=== PATIENT | female | born 1985 | race Caucasian/White ===

== ENCOUNTER 2018-10-03 10:45 | Emergency (ER) | payer BC ==
[2018-10-03] MEDS ORDERED: Sodium Chloride 0.9% 1,000 ML IV ONE (11:02)
[2018-10-03] MEDS ORDERED: Sodium Chloride 0.9% 10 ML Syringe FLUSH PRN (11:02)
[2018-10-03] MEDS ORDERED: methylPREDNISolone Sodium Succinate 125 MG/2 ML SDV IVPUSH ONE (11:03)
[2018-10-03] MEDS ORDERED: Famotidine 20 MG/2 ML SDV IVPUSH ONE (11:07)
--- NOTE | 2018-10-03 11:45 | EDM.PDOC ---
Scribed by Honey Torres 10/03/18 1143 for Ela Haywood NP ED HPI GENERAL MEDICAL PROBLEM - General Chief Complaint: Allergic Reaction Stated Complaint: ALLERGIC REACTION [id number] Time Seen by Provider: 10/03/18 11:00 Source of Information: Reports: Patient, RN, RN Notes Reviewed History Limitations: Reports: No Limitations - History of Present Illness INITIAL COMMENTS - FREE TEXT/NARRATIVE: Patient presents to ER with complaint of hives all over the body. Patient states she was in [place] this weekend when she broke out in hives. She states no new hygiene products. Possibly sheets at hotel. She was seen in ER in [place]. Today she broke out in hives--states she feels as though she is crawling out of her skin. Patient denies allergies other than seasonal. Denies airway obstruction/swelling of tongue/shortness of breath at this time. States she has taken Benadryl 50 mg q 40 hours without help. Onset: Gradual Duration: Getting Worse Location: Reports: Generalized Quality: Reports: Burning Severity: Severe Improves with: Reports: None Worsens with: Reports: None Associated Symptoms: Reports: No Other Symptoms Generalized Pain Score (Numeric/FACES): 8 - Related Data Allergies Allergy/AdvReac Type Severity Reaction Status Date / Time azithromycin Allergy Hives Verified 10/03/18 10:53 [From Zithromax Z-Alexander] Home Meds: Home Meds Dicyclomine [Bentyl] 20 mg PO TID PRN 10/03/18 [History] Gemfibrozil 600 mg PO BIDAC 10/03/18 [History] Naltrexone HCl/Bupropion HCl [Contrave ER 8-90 mg Tablet] 1 tab PO ASDIRECTED [History] Past Medical History Gastrointestinal History: Reports: Cholelithiasis Psychiatric History: Reports: Depression Social & Family History - Tobacco Use Smoking Status *Q: Current Every Day Smoker Years of Tobacco use: 15 Packs/Tins Daily: 0.5 - Recreational Drug Use Recreational Drug Use: No ED ROS ALLERGIC REACTION - Review of Systems Review Of Systems: ROS reveals no pertinent complaints other than HPI. ED EXAM GENERAL NO PERIP PULSE - Physical Exam Exam: See Below Exam Limited By: No Limitations General Appearance: Anxious, Moderate Distress Eye Exam: Bilateral Eye: EOMI, Normal Inspection, PERRL Ears: Normal External Exam, Normal Canal, Hearing Grossly Normal, Normal TMs Nose: Normal Inspection, Normal Mucosa, No Blood Throat/Mouth: Normal Inspection, Normal Lips, Normal Teeth, Normal Gums, Normal Oropharynx, Normal Voice, No Airway Compromise Head: Atraumatic, Normocephalic Neck: Normal Inspection, Supple, Non-Tender, Full Range of Motion Respiratory/Chest: No Respiratory Distress, Lungs Clear, Normal Breath Sounds, No Accessory Muscle Use, Chest Non-Tender Cardiovascular: Normal Peripheral Pulses, Regular Rate, Rhythm, No Edema, No Gallop, No JVD, No Murmur, No Rub GI/Abdominal: Normal Bowel Sounds, Soft, Non-Tender, No Organomegaly, No Distention, No Abnormal Bruit, No Mass (Female) Exam: Deferred Rectal (Female) Exam: Deferred Back Exam: Normal Inspection, Full Range of Motion, NT Extremities: Normal Inspection, Normal Range of Motion, Non-Tender, Normal Capillary Refill, No Pedal Edema Neurological: Alert, Oriented, CN II-XII Intact, Normal Cognition, Normal Gait, Normal Reflexes, No Motor/Sensory Deficits Psychiatric: Normal Affect, Normal Mood Skin Exam: Other (diffuse hives trunk and extremities) Course - Orders/Labs/Meds Orders: Active Orders 24 hr Category Date Time Status Peripheral IV Care [RC] . DIRECTED Care 10/03/18 11:02 Active Sodium Chloride 0.9% [Normal Saline] 1,000 ml Med 10/03/18 11:02 Active IV .BOLUS Sodium Chloride 0.9% [Saline Flush] Med 10/03/18 11:02 Active 10 ml FLUSH ASDIRECTED PRN Peripheral IV Insertion Adult [OM.PC] Stat Oth 10/03/18 11:02 Ordered Medication Orders Sodium Chloride (Normal Saline) 1,000 mls @ 999 mls/hr IV .BOLUS ONE Stop: 10/03/18 12:02 Last Admin: 10/03/18 11:05 Dose: 999 mls/hr Sodium Chloride (Saline Flush) 10 ml FLUSH ASDIRECTED PRN PRN Reason: Keep Vein Open Last Admin: 10/03/18 11:19 Dose: 10 ml Meds: Medications Generic Name Dose Route Start Last Admin Trade Name Freq PRN Reason Stop Dose Admin Sodium Chloride 1,000 mls @ 999 mls/hr 10/03/18 11:02 10/03/18 11:05 Normal Saline IV 10/03/18 12:02 999 mls/hr .BOLUS ONE Administration Sodium Chloride 10 ml 10/03/18 11:02 10/03/18 11:19 Saline Flush FLUSH 10 ml ASDIRECTED PRN Administration Keep Vein Open Discontinued Medications Generic Name Dose Route Start Last Admin Trade Name Johnq PRN Reason Stop Dose Admin Famotidine 20 mg 10/03/18 11:07 10/03/18 11:11 Pepcid IVPUSH 10/03/18 11:08 20 mg ONETIME ONE Administration Methylprednisolone Sodium Succinate 125 mg 10/03/18 11:03 10/03/18 11:07 Solu-Medrol IVPUSH 10/03/18 11:04 125 mg ONETIME ONE Administration Departure - Departure Time of Disposition: 11:41 Disposition: Home, Self-Care 01 Condition: Fair Clinical Impression: Hives - Discharge Information *PRESCRIPTION DRUG MONITORING PROGRAM REVIEWED*: No *COPY OF PRESCRIPTION DRUG MONITORING REPORT IN PATIENT IDALMIS: No Instructions: Hives, [id number], Allergies, Adult, [id number] Forms: ED Department Discharge Additional Instructions: Claritin daily RX: Singulair, Prednisone May use Benadryl 50mg every 6-8 hours as directed May use Calamine lotion or Benadryl cream topically Wash all laundry Take a shower and do not use any hygiene products, just water Return to the ER if you feel your tongue or throat swelling Follow up with your primary care facility - My Orders Last 24 Hours: My Active Orders 10/03/18 11:02 Peripheral IV Care [RC] . DIRECTED Sodium Chloride 0.9% [Normal Saline] 1,000 ml IV .BOLUS Sodium Chloride 0.9% [Saline Flush] 10 ml FLUSH ASDIRECTED PRN Peripheral IV Insertion Adult [OM.PC] Stat - Assessment/Plan Last 24 Hours: My Active Orders 10/03/18 11:02 Peripheral IV Care [RC] . DIRECTED Sodium Chloride 0.9% [Normal Saline] 1,000 ml IV .BOLUS Sodium Chloride 0.9% [Saline Flush] 10 ml FLUSH ASDIRECTED PRN Peripheral IV Insertion Adult [OM.PC] Stat I have read and agree with the documentation that has been completed regarding this visit. By signing this record, I attest that the documentation was completed in my physical presence and is an accurate record of the encounter.
== END 2018-10-03 12:12 | disposition home or self-care (01) ==
LOC: DL.ED 10:45
DX: L50.0 Allergic urticaria (principal); F17.210 Nicotine dependence, cigarettes, uncomplicated; Z88.1 Allergy status to other antibiotic agents; Z79.899 Other long term (current) drug therapy
CPT/HCPCS: 96361; 96374; 96375; 99283; J2930; J3490; J7030